=== PATIENT | female | born 1970 | race Caucasian/White ===

== ENCOUNTER → 2016-12-17 | Outpatient (CLI) | payer BC ==
[~2016-12-17] MED LIST: ESCI10TA17 PO; IBUP600T44 PO; NAPROXEN; VITAMINS
--- NOTE | 2016-12-17 10:41 | DIAGNOSTIC IMAGING REPORT ---
LEFT ANKLE 3 VIEWS HISTORY: PAIN IN LEFT ANKLE COMPARISON: None. FINDINGS: There is no fracture or dislocation. Lateral soft tissue swelling. No radiopaque foreign bodies. IMPRESSION: No fractures. Electronically signed by: Sixto Sánchez M.D. 12/17/2016 10:39 AM Dictated Date/Time: 12/17/2016 10:38 AM
== END | disposition home or self-care (01) ==
LOC: C.RAD1850 10:25
PROVIDERS: ATTEND Family Medicine
DX: M25.572 Pain in left ankle and joints of left foot (principal)

== ENCOUNTER → 2018-04-30 | Outpatient (CLI) | payer OTHER | END | disposition home or self-care (01) | LOC: C.PAPS 14:17 | PROVIDERS: ATTEND Obstetrics & Gynecology | DX: Z12.4 Encounter for screening for malignant neoplasm of cervix (principal) ==